=== PATIENT | female | born 1955 | race Caucasian/White ===

== ENCOUNTER 2017-01-22 18:15 | Outpatient (CLI) | payer BC | END 2017-01-22 18:16 | disposition critical access hospital (66) | LOC: EMS 18:15 | PROVIDERS: ATTEND Surgery | DX: R13.10 Dysphagia, unspecified (principal); R68.2 Dry mouth, unspecified | CPT/HCPCS: A0425; A0427 ==

== ENCOUNTER 2017-01-22 18:48 | Emergency (ER) | payer BC ==
[2017-01-22] MEDS ORDERED: SODIUM CHLORIDE 0.9% 1,000 ML IV ONE (20:34)
[2017-01-22 20:59] LABS: BASOPHILS # (AUTO) 0.1 10^3/uL (0.0-0.1); BASOPHILS % (AUTO) 0.9 %; EOSINOPHILS # (AUTO) 0.1 10^3/uL (0.0-0.7); EOSINOPHILS % (AUTO) 0.8 %; HCT - HEMATOCRIT 33.7 % (37.0-47.0); HGB - HEMOGLOBIN 11.5 g/dL (12.0-16.0); LYMPHOCYTES # (AUTO) 1.1 10^3/uL (1.5-3.5); LYMPHOCYTES % (AUTO) 15.5 %; MEAN CORPUSCULAR HEMOGLOBIN 31.5 pg (27.0-31.0); MEAN CORPUSCULAR HGB CONC 34.1 g/dL (32.0-36.0); MEAN CORPUSCULAR VOLUME 92.4 fL (81.0-99.0); MEAN PLATELET VOLUME 6.9 fL (7.9-10.8); MONOCYTES # (AUTO) 0.7 10^3/uL (0.0-1.0); NEUTROPHILS # (AUTO) 5.2 10^3/uL (1.5-6.6); NEUTROPHILS % (AUTO) 72.8 %; RED BLOOD COUNT 3.64 10^6/uL (4.20-5.40); RED CELL DISTRIBUTION WIDTH 12.5 % (12.0-15.0); UNCORRECTED WHITE BLOOD COUNT 7.1 x10^3/uL; WHITE BLOOD COUNT 7.1 x10^3/uL (4.8-10.8)
[2017-01-22 21:13] LABS: ALBUMIN/GLOBULIN RATIO 1.6 (1.0-2.2); BILIRUBIN,TOTAL 0.9 mg/dL (0.2-1.0); CALCIUM 9.1 mg/dL (8.5-10.3); CREATININE 1.1 mg/dL (0.4-1.0); POTASSIUM 4.1 mmol/L (3.5-5.0); TOTAL PROTEIN 6.7 g/dL (6.7-8.2)
--- NOTE | 2017-01-22 22:38 | ED Physician Documentation ---
History of Present Illness - Stated complaint Stated Complaint: POSS ALLERGIC REACTION - Chief complaint Chief Complaint: General - History obtained from History obtained from: Patient - Additonal information Additional information: Patient is a 61-year-old female with a history of what sounds like rheumatoid arthritis according to her . She is on Enbrel and also takes nabumetone and nonsteroidal anti-inflammatories for recurrent pain. She also has a history of hypertension and diabetes. She was in her normal state of health earlier today when she took oral cannabinoids and attempt to remedy her pain. In attempt to remedy her pain. Her pain was generalized and is nothing new according to her and she was fine all morning and the previous last several days. They went out to dinner after taking the medication at 4 PM and about 6 PM she was woozy and appeared slightly confused. At that point the thought she was having allergic reaction gave her 3x25 mg doses of Benadryl. She was subsequently brought in for evaluation for confusion and lethargy. The patient denies any chest pain, shortness of breath nausea, vomiting, fever, constipation diarrhea lower urinary symptoms. Review of systems: For pertinent positive and negatives in the review of systems please see the history of present illness, otherwise all other systems have been reviewed and are negative. Dragon disclaimer: Parts of this medical record were created using voice recognition technology. Because of the inherent limitations of this system, occasional same sounding word substitutions do occur and persist despite proofreading. Please read the document for context. Review of Systems Constitutional: denies: Fever, Chills, Myalgias Cardiac: denies: Chest pain / pressure, Palpitations Respiratory: denies: Dyspnea, Cough GI: denies: Abdominal Pain, Abdominal Swelling Neurologic: reports: Generalized weakness, Confused. denies: Syncope, Seizure, Headache, Head injury Psychiatric: denies: Depressed, Suicidal, Hallucinations, Delusions, Anxiety PD PAST MEDICAL HISTORY - Past Medical History Cardiovascular: Hypertension, High cholesterol Respiratory: Asthma Endocrine/Autoimmune: Type 2 diabetes, HyPOthyroidism Musculoskeletal: Rheumatoid arthritis, Chronic back pain - Past Surgical History Past Surgical History: Yes Ortho: Knee replacement, Shoulder arthroplasty, Carpal Tunnel surgery - Present Medications Home Medications: Ambulatory Orders Medication Instructions Recorded Confirmed Albuterol Sulfate [Albuterol 8.5 gm IH DAILY PRN 07/08/14 02/16/15 Sulfate Hfa] Etanercept [Enbrel] 50 mg SQ DAILY 07/08/14 02/16/15 Fluticasone [Flonase] 07/08/14 02/16/15 Glimepiride 2 mg PO DAILY 07/08/14 02/16/15 Levothyroxine [Synthroid] 50 mcg PO QDAC 07/08/14 02/16/15 Metformin HCl 500 mg PO TID 07/08/14 02/16/15 Methocarbamol [Robaxin] 500 mg PO DAILY PRN 07/08/14 02/16/15 Nabumetone 500 mg PO BID 07/08/14 02/16/15 Rizatriptan Benzoate [Maxalt Senior Underwriting Assistant] 5 mg PO DAILY PRN 07/08/14 02/16/15 Valsartan/Hydrochlorothiazide 1 each PO DAILY 07/08/14 02/16/15 [Valsartan-Hctz 320-12.5 mg Tab] Verapamil ER [Calan SA] 180 mg PO DAILY 07/08/14 02/16/15 Azithromycin [Zithromax] 250 mg PO DAILY 02/16/15 02/16/15 predniSONE [Deltasone] 10 mg PO DAILY 02/16/15 02/16/15 - Allergies Allergies/Adverse Reactions: Allergies Allergy/AdvReac Type Severity Reaction Status Date / Time codeine Allergy Anaphylaxis Verified 07/08/14 19:15 meperidine HCl * Allergy Anaphylaxis Verified 07/08/14 19:15 [From Demerol] Penicillins AdvReac Itching Verified 07/08/14 19:15 simvastatin AdvReac Dizziness Verified 07/08/14 19:15 opiates Allergy Unknown Uncoded 01/22/17 18:56 - Social History Does the pt smoke?: No Smoking Status: Never smoker Does the pt drink ETOH?: No Does the pt have substance abuse?: No - Immunizations Immunizations are current?: Yes - POLST Patient has POLST: No PD ED PE NORMAL - Vitals Vital signs reviewed: Yes - General General: Alert and oriented X 3, No acute distress, Well developed/nourished, Other (Large habitus female who is very sedated but arousable. Pupils are 3-4 mm and equal bilaterally no disconjugate gaze) - HEENT HEENT: Atraumatic, PERRL, Pharynx benign - Neck Neck: Supple, no meningeal sign - Cardiac Cardiac: RRR, No gallop - Respiratory Respiratory: No respiratory distress, Clear bilaterally - Abdomen Abdomen: Normal bowel sounds, Non tender - Rectal Rectal: Deferred - Back Back: No CVA TTP, No spinal TTP - Derm Derm: Normal color, Warm and dry, No rash, Other - Extremities Extremities: No deformity - Neuro Neuro: crane mechanic 2-12 intact, No motor deficit, No sensory deficit Results - Vitals Vitals: Vital Signs - 24 hr 01/22/17 01/22/17 01/22/17 18:50 19:17 20:20 Temperature 36.6 C Heart Rate 96 93 60 Respiratory 16 17 17 Rate Blood Pressure 165/88 H 141/84 H 73/45 L O2 Saturation 96 95 100 01/22/17 01/22/17 01/22/17 21:20 21:45 22:19 Temperature Heart Rate 70 71 80 Respiratory 15 15 17 Rate Blood Pressure 94/60 103/61 110/60 O2 Saturation 96 97 96 01/22/17 01/23/17 23:23 00:56 Temperature Heart Rate 70 69 Respiratory 14 14 Rate Blood Pressure 114/63 136/79 H O2 Saturation 95 96 Oxygen O2 Source Room air - Labs Labs: Laboratory Tests 01/22/17 01/22/17 01/22/17 20:48 20:48 20:48 WBC 7.1 RBC 3.64 L Hgb 11.5 L Hct 33.7 L MCV 92.4 MCH 31.5 H MCHC 34.1 RDW 12.5 Plt Count 206 MPV 6.9 L Neut # 5.2 Lymph # 1.1 L [place] # 0.7 Eos # 0.1 Baso # 0.1 Absolute Nucleated RBC 0.00 Nucleated RBCs 0.0 Sodium 133 L Potassium 4.1 Chloride 97 L Carbon Dioxide 25 Anion Gap 11.0 BUN 19 Creatinine 1.1 H Estimated GFR (MDRD) 50 L Glucose 116 H Calcium 9.1 Total Bilirubin 0.9 AST 35 ALT 41 Alkaline Phosphatase 35 L Troponin I < 0.04 Total Protein 6.7 Albumin 4.1 Globulin 2.6 Albumin/Globulin Ratio 1.6 Lipase 19 L PD MEDICAL DECISION MAKING - ED course Complexity details: reviewed old records, re-evaluated patient, other ED course: This patient a pleasant 60-year-old female with history of rheumatologic condition on Enbrel who he is cannabinoids about 4:00 became very sedated and was given Benadryl, 3 in total by her thinking this was allergic reaction. She then was very sedated and lethargic at dinner and for evaluation. Other than being sedated here clinically the patient is always looked well. There is one episode her blood sugar pressures dropped into the 70s but came back nicely with IV fluids. She does not have any signs or symptoms of infection. Routine labs are done and are unremarkable. EKG shows normal sinus rhythm at 75 bpm there is a small Q-wave inferiorly overall lower voltage and a prolonged OK interval consistent with first-degree AV block. After several hours of observation and fluids the patient looks and feels better there is she has good color she is now ambulatory and will be discharged to home. Disposition: To home Clinical impression: 1. Medication side effect from cannabinoids and oral Benadryl causing sedation and mild asymptomatic hypertension Departure - Departure Disposition: 01 Home, Self Care Clinical Impression: Medication adverse effect Condition: Good Instructions: ED Drug React Adverse Other Follow-Up: your,physician [Other]
[2017-01-23 01:28] VITALS: BP 132/82
== END 2017-01-23 02:25 | disposition home or self-care (01) ==
LOC: EDBD → EDUNIT# → ED 18:48
DX: T40.7X5A Adverse effect of cannabis (derivatives), initial encounter (principal); T45.0X5A Adverse effect of antiallergic and antiemetic drugs, initial encounter; R53.83 Other fatigue; I44.0 Atrioventricular block, first degree; E11.9 Type 2 diabetes mellitus without complications; Z79.84 Long term (current) use of oral hypoglycemic drugs; I10 Essential (primary) hypertension; E78.00 Pure hypercholesterolemia, unspecified; E03.9 Hypothyroidism, unspecified; M06.9 Rheumatoid arthritis, unspecified; Z96.659 Presence of unspecified artificial knee joint; Z79.52 Long term (current) use of systemic steroids
CPT/HCPCS: 36415; 80053; 83690; 84484; 85025; 93005; 96360; 99284

== ENCOUNTER 2019-12-09 22:10 | Outpatient (CLI) | payer SELFPAY | END 2019-12-09 22:11 | disposition EMS.NT | LOC: EMS 22:10 | PROVIDERS: ATTEND Surgery | DX: R73.09 Other abnormal glucose (principal) ==

== ENCOUNTER 2023-08-02 13:48 | Outpatient (CLI) | payer MEDICARE, OTHER ==
[2023-08-02 14:01] LABS: BASOPHILS # (AUTO) 0.1 10^3/uL (0.0-0.1); BASOPHILS % (AUTO) 1.1 %; EOSINOPHILS # (AUTO) 0.8 10^3/uL (0.0-0.7); EOSINOPHILS % (AUTO) 11.2 %; HCT - HEMATOCRIT 35.3 % (37.0-47.0); HGB - HEMOGLOBIN 11.4 g/dL (12.0-16.0); LYMPHOCYTES # (AUTO) 2.3 10^3/uL (1.5-3.5); LYMPHOCYTES % (AUTO) 31.2 %; MEAN CORPUSCULAR HEMOGLOBIN 30.9 pg (27.0-31.0); MEAN CORPUSCULAR HGB CONC 32.3 g/dL (32.0-36.0); MEAN CORPUSCULAR VOLUME 95.7 fL (81.0-99.0); MEAN PLATELET VOLUME 8.6 fL (7.9-10.8); MONOCYTES # (AUTO) 0.5 10^3/uL (0.0-1.0); MONOCYTES % (AUTO) 7.5 %; NEUTROPHILS # (AUTO) 3.4 10^3/uL (1.5-6.6); NEUTROPHILS % (AUTO) 46.8 %; PLT - PLATELET COUNT 330 10^3/uL (130-450); RED BLOOD COUNT 3.69 10^6/uL (4.20-5.40); RED CELL DISTRIBUTION WIDTH 13.5 % (12.0-15.0); WHITE BLOOD COUNT 7.2 x10^3/uL (4.8-10.8)
[2023-08-02 14:19] LABS: BILIRUBIN,URINE NEGATIVE (NEGATIVE); GLUCOSE, URINE (UA) >=1000 mg/dL (NEGATIVE); KETONES,URINE (UA) NEGATIVE (NEGATIVE); LEUKOCYTE ESTERASE, URINE SMALL (NEGATIVE); NITRITE,URINE NEGATIVE (NEGATIVE); OCCULT BLOOD,URINE NEGATIVE (NEGATIVE); PROTEIN,URINE NEGATIVE (NEGATIVE); UROBILINOGEN,URINE 0.2 (NORMAL) E.U./dL (NORMAL)
[2023-08-02 14:27] LABS: BACTERIA,URINE Many /HPF (None Seen); CLARITY,URINE CLOUDY (CLEAR); RBC,URINE 0-5 /HPF (0-5); SQUAMOUS EPITHELIAL CELL,UR RARE Squamous (<= Few); WBC,URINE >25 /HPF (0-5)
[2023-08-02 14:31] LABS: ALBUMIN 4.5 g/dL (3.2-5.5); CALCIUM 10.2 mg/dL (8.5-10.3); CREATININE 1.6 mg/dL (0.6-1.3); PHOSPHORUS 4.1 mg/dL (2.5-5.0); POTASSIUM 4.5 mmol/L (3.5-4.5); URIC ACID 5.3 mg/dL (2.3-6.6)
[2023-08-02 14:34] LABS: CREATININE,URINE 32.1 mg/dL; PROTEIN/CREATININE RATIO,URINE 0.6 (<=0.2)
[2023-08-03 05:13] LABS: COMPLEMENT C3 146 mg/dL (82-167); COMPLEMENT C4 28 mg/dL (12-38)
[2023-08-03 19:07] LABS: KAPPA FREE LT CHAINS SERUM 69.7 mg/L (3.3-19.4)
[2023-08-06 14:08] LABS: A/G RATIO 1.3 (0.7-1.7); ALPHA-1-GLOBULIN 0.2 g/dL (0.0-0.4); ALPHA-2-GLOBULIN 0.9 g/dL (0.4-1.0); BETA GLOBULIN 1.1 g/dL (0.7-1.3); GAMMA GLOBULIN 1.1 g/dL (0.4-1.8); GLOBULIN TOTAL 3.2 g/dL (2.2-3.9); IMMUNOGLOBULIN A (IGA) 215 mg/dL (87-352); IMMUNOGLOBULIN G (IGG) 974 mg/dL (586-1602); IMMUNOGLOBULIN M (IGM) 44 mg/dL (26-217); M-SPIKE Not Observed g/dL (Not Observed); PROTEIN TOTAL 7.2 g/dL (6.0-8.5)
== END 2023-08-02 13:49 | disposition home or self-care (01) ==
LOC: LAB 13:48
PROVIDERS: ATTEND Internal Medicine Nephrology
DX: N18.32 Chronic kidney disease, stage 3b (principal); R80.9 Proteinuria, unspecified
CPT/HCPCS: 36415; 80069; 81001; 82570; 82784; 83521; 83970; 84155; 84156; 84165; 84550; 85025; 86160; 86334; 87086; 87181

== ENCOUNTER 2023-09-13 16:47 | Outpatient (CLI) | payer MEDICARE, OTHER | END 2023-09-13 23:59 | disposition EMS.NT | LOC: EMS 16:47 | DX: Z03.89 Encounter for observation for other suspected diseases and conditions ruled out (principal) ==

== ENCOUNTER 2024-01-10 03:58 | Outpatient (CLI) | payer MEDICARE | END 2024-01-10 23:59 | disposition critical access hospital (66) | LOC: EMS 03:58 | DX: R07.9 Chest pain, unspecified (principal); R61 Generalized hyperhidrosis; R42 Dizziness and giddiness; R19.7 Diarrhea, unspecified; R19.5 Other fecal abnormalities; R23.2 Flushing | CPT/HCPCS: A0425; A0429 ==

== ENCOUNTER 2024-01-10 04:26 | Emergency (ER) | payer MEDICARE, OTHER ==
[2024-01-10 05:05] LABS: BASOPHILS # (AUTO) 0.1 10^3/uL (0.0-0.1); BASOPHILS % (AUTO) 0.5 %; EOSINOPHILS # (AUTO) 0.3 10^3/uL (0.0-0.7); EOSINOPHILS % (AUTO) 1.9 %; HCT - HEMATOCRIT 37.4 % (37.0-47.0); HGB - HEMOGLOBIN 11.9 g/dL (12.0-16.0); LYMPHOCYTES # (AUTO) 1.8 10^3/uL (1.5-3.5); LYMPHOCYTES % (AUTO) 11.6 %; MEAN CORPUSCULAR HEMOGLOBIN 30.6 pg (27.0-31.0); MEAN CORPUSCULAR HGB CONC 31.8 g/dL (32.0-36.0); MEAN CORPUSCULAR VOLUME 96.1 fL (81.0-99.0); MEAN PLATELET VOLUME 9.1 fL (7.9-10.8); MONOCYTES # (AUTO) 0.9 10^3/uL (0.0-1.0); MONOCYTES % (AUTO) 6.1 %; NEUTROPHILS # (AUTO) 11.8 10^3/uL (1.5-6.6); NEUTROPHILS % (AUTO) 77.8 %; PLT - PLATELET COUNT 311 10^3/uL (130-450); RED BLOOD COUNT 3.89 10^6/uL (4.20-5.40); RED CELL DISTRIBUTION WIDTH 13.2 % (12.0-15.0); WHITE BLOOD COUNT 15.1 x10^3/uL (4.8-10.8)
[2024-01-10 05:23] LABS: TROPONIN I HIGH SENSITIVITY 4.4 ng/L (2.3-14.8)
[2024-01-10 05:29] LABS: ALBUMIN 4.4 g/dL (3.2-5.5); ALBUMIN/GLOBULIN RATIO 1.8 (1.0-2.2); BILIRUBIN,TOTAL 0.4 mg/dL (0.2-1.0); CALCIUM 9.6 mg/dL (8.5-10.3); CREATININE 1.5 mg/dL (0.6-1.3); POTASSIUM 3.7 mmol/L (3.5-4.5); TOTAL PROTEIN 6.9 g/dL (6.4-8.9)
--- NOTE | 2024-01-10 06:27 | ED Physician Documentation ---
PD HPI CHEST PAIN - Stated complaint Stated Complaint: DIZZY/DIARRHEA - Chief complaint Chief Complaint: Cardiac - History obtained from History obtained from: Patient, EMS - Additional information Additional information: 68-year-old female with history of [id number] diabetes, stage III chronic kidney disease, fatty liver disease presents by EMS from home for chest pain and episode of dark stools. Patient states that she got up to use the restroom in the middle the night and felt a heavy pain throughout her entire torso. This resolved spontaneously, however afterwards patient had a brief episode of stomach discomfort and had a dark bowel movement. Patient states that she did not see the bowel movement, her is the one who noticed it and called 911. Patient denies complaints at this time. She states she feels otherwise well. Denies chest pain, abdominal pain, use of blood thinners. Currently playing [employer] on her cell phone Review of Systems Constitutional: denies: Fever, Chills Cardiac: denies: Chest pain / pressure, Palpitations, Calf pain Respiratory: denies: Dyspnea, Cough, Wheezing Musculoskeletal: denies: Neck pain, Back pain, Extremity pain PD PAST MEDICAL HISTORY - Past Medical History Cardiovascular: Hypertension, High cholesterol Respiratory: Asthma Endocrine/Autoimmune: Type 2 diabetes, HyPOthyroidism Musculoskeletal: Rheumatoid arthritis, Chronic back pain - Past Surgical History Past Surgical History: Yes Ortho: Knee replacement, Shoulder arthroplasty, Carpal Tunnel surgery - Present Medications Home Medications: Ambulatory Orders Medication Instructions Recorded Confirmed Albuterol Sulfate [Albuterol 8.5 gm IH DAILY PRN 07/08/14 02/16/15 Sulfate Hfa] Etanercept [Enbrel] 50 mg SQ DAILY 07/08/14 02/16/15 Fluticasone [Flonase] 07/08/14 02/16/15 Glimepiride 2 mg PO DAILY 07/08/14 02/16/15 Levothyroxine [Synthroid] 50 mcg PO QDAC 07/08/14 02/16/15 Metformin HCl 500 mg PO TID 07/08/14 02/16/15 Nabumetone 500 mg PO BID 07/08/14 02/16/15 Rizatriptan Benzoate [Maxalt Family Therapist] 5 mg PO DAILY PRN 07/08/14 02/16/15 Valsartan/Hydrochlorothiazide 1 each PO DAILY 07/08/14 02/16/15 [Valsartan-Hctz 320-12.5 mg Tab] Verapamil ER [Calan SA] 180 mg PO DAILY 07/08/14 02/16/15 methocarbamoL [Robaxin] 500 mg PO DAILY PRN 07/08/14 02/16/15 Azithromycin [Zithromax] 250 mg PO DAILY 02/16/15 02/16/15 predniSONE [Deltasone] 10 mg PO DAILY 02/16/15 02/16/15 - Allergies Allergies/Adverse Reactions: Allergies Allergy/AdvReac Type Severity Reaction Status Date / Time codeine Allergy Anaphylaxis Verified 07/08/14 19:15 meperidine HCl * Allergy Anaphylaxis Verified 07/08/14 19:15 [From Demerol] Penicillins AdvReac Itching Verified 07/08/14 19:15 simvastatin AdvReac Dizziness Verified 07/08/14 19:15 opiates Allergy Unknown Uncoded 01/22/17 18:56 - Social History Does the pt smoke?: No Smoking Status: Never smoker Does the pt drink ETOH?: No Does the pt have substance abuse?: No - Immunizations Immunizations are current?: Yes - POLST Patient has POLST: No PD ED PE NORMAL - Vitals Vital signs reviewed: Yes - General General: Alert and oriented X 3, No acute distress, Well developed/nourished - Cardiac Cardiac: RRR, Strong equal pulses - Respiratory Respiratory: No respiratory distress, Clear bilaterally - Abdomen Abdomen: Soft, Non tender, Non distended - Derm Derm: Normal color, Warm and dry, No rash - Extremities Extremities: No deformity, No tenderness to palpate, Normal ROM s pain, No edema - Neuro Neuro: Alert and oriented X 3, webfocus developer 2-12 intact, No motor deficit, Normal speech Results - Vitals Vitals: Oxygen O2 Source Room air - Labs Labs: Laboratory Tests 01/10/24 01/10/24 01/10/24 04:47 04:47 05:02 WBC 15.1 H RBC 3.89 L Hgb 11.9 L Hct 37.4 MCV 96.1 MCH 30.6 MCHC 31.8 L RDW 13.2 Plt Count 311 MPV 9.1 Neut # (Auto) 11.8 H Lymph # (Auto) 1.8 [place] # (Auto) 0.9 Eos # (Auto) 0.3 Baso # (Auto) 0.1 Absolute Nucleated RBC 0.00 Nucleated RBC % 0.0 PT 11.0 INR 1.0 Sodium 136 Potassium 3.7 Chloride 103 Carbon Dioxide 23 Anion Gap 10.0 BUN 46 H Creatinine 1.5 H Estimated GFR (MDRD) 34 L Glucose 160 H Calcium 9.6 Total Bilirubin 0.4 AST 13 ALT 15 Alkaline Phosphatase 38 L Troponin I High Sens 4.4 Total Protein 6.9 Albumin 4.4 Globulin 2.5 Albumin/Globulin Ratio 1.8 Lipase 46 01/10/24 06:37 WBC RBC Hgb Hct MCV MCH MCHC RDW Plt Count MPV Neut # (Auto) Lymph # (Auto) [place] # (Auto) Eos # (Auto) Baso # (Auto) Absolute Nucleated RBC Nucleated RBC % PT INR Sodium Potassium Chloride Carbon Dioxide Anion Gap BUN Creatinine Estimated GFR (MDRD) Glucose Calcium Total Bilirubin AST ALT Alkaline Phosphatase Troponin I High Sens 4.5 Total Protein Albumin Globulin Albumin/Globulin Ratio Lipase PD Medical Decision Making - ED course Complexity details: reviewed old records, reviewed results, re-evaluated patient, considered differential, d/w patient ED course: Well-appearing patient with brief episode of chest pain prior to arrival as well as an episode of dark stools. Patient denies complaints at this time. Not on b lood thinners. Physical exam is unremarkable, no significant findings. Initial troponin undetectable. Patient resting comfortably in bed, no further episodes identified. 2-hour troponin drawn, pending, to be followed up by daytime physician. Departure - Departure Disposition: 01 Home, Self Care Clinical Impression: Chest pain Condition: Stable Instructions: ED Chest Pain Atypical Unkn Cause Comments: Follow up with your primary care doctor. Your laboratory work today was normal and your chest x-ray did not show anything concerning. Talk to your doctor about being referred to a radio electrician. Forms: PCP List Discharge Date/Time: 01/10/24 07:30
[2024-01-10 06:55] VITALS: BP 136/66; O2SAT 98
--- NOTE | 2024-01-10 10:04 | XRAY Report ---
PROCEDURE: Chest 1V INDICATIONS: chest pain TECHNIQUE: One view of the chest was acquired. COMPARISON: None. FINDINGS: Surgical changes and devices: None. Lungs and pleura: No pleural effusions or pneumothorax. Lungs are clear. Mediastinum: Mediastinal contours appear normal. Heart size is enlarged. Bones and chest wall: No suspicious bony lesions. Overlying soft tissues appear unremarkable. IMPRESSION: No acute cardiopulmonary process. The above findings are concordant with preliminary report. Reviewed by: Larissa Martinez MD on 01/10/2024 10:02 AM PDT Approved by: Larissa Martinez MD on 01/10/2024 10:02 AM PDT Station ID: [id number]
== END 2024-01-10 07:30 | disposition home or self-care (01) ==
LOC: EDUNIT# → ED 04:26
DX: R07.9 Chest pain, unspecified (principal); I12.9 Hypertensive chronic kidney disease with stage 1 through stage 4 chronic kidney disease, or unspecified chronic kidney disease; E11.22 Type 2 diabetes mellitus with diabetic chronic kidney disease; N18.30 Chronic kidney disease, stage 3 unspecified; K76.0 Fatty (change of) liver, not elsewhere classified; J45.909 Unspecified asthma, uncomplicated; M06.9 Rheumatoid arthritis, unspecified
CPT/HCPCS: 36415; 80053; 83690; 84484; 85025; 85610; 93005; 99283; 99284

== ENCOUNTER 2024-01-30 10:42 | Outpatient (CLI) | payer MEDICARE ==
[2024-01-30 11:14] LABS: BASOPHILS # (AUTO) 0.1 10^3/uL (0.0-0.1); EOSINOPHILS # (AUTO) 0.3 10^3/uL (0.0-0.7); EOSINOPHILS % (AUTO) 4.1 %; HCT - HEMATOCRIT 35.1 % (37.0-47.0); HGB - HEMOGLOBIN 11.5 g/dL (12.0-16.0); LYMPHOCYTES # (AUTO) 1.9 10^3/uL (1.5-3.5); MEAN CORPUSCULAR HEMOGLOBIN 30.8 pg (27.0-31.0); MEAN CORPUSCULAR HGB CONC 32.8 g/dL (32.0-36.0); MEAN CORPUSCULAR VOLUME 94.1 fL (81.0-99.0); MONOCYTES # (AUTO) 0.5 10^3/uL (0.0-1.0); MONOCYTES % (AUTO) 6.4 %; NEUTROPHILS # (AUTO) 3.9 10^3/uL (1.5-6.6); NEUTROPHILS % (AUTO) 55.6 %; PLT - PLATELET COUNT 350 10^3/uL (130-450); RED BLOOD COUNT 3.73 10^6/uL (4.20-5.40)
[2024-01-30 11:17] LABS: BILIRUBIN,URINE NEGATIVE (NEGATIVE); GLUCOSE, URINE (UA) >=1000 mg/dL (NEGATIVE); KETONES,URINE (UA) NEGATIVE (NEGATIVE); LEUKOCYTE ESTERASE, URINE NEGATIVE (NEGATIVE); NITRITE,URINE POSITIVE (NEGATIVE); OCCULT BLOOD,URINE NEGATIVE (NEGATIVE); PROTEIN,URINE NEGATIVE (NEGATIVE); UROBILINOGEN,URINE 0.2 (NORMAL) E.U./dL (NORMAL)
[2024-01-30 11:22] LABS: ALBUMIN 4.3 g/dL (3.2-5.5); CALCIUM 9.4 mg/dL (8.5-10.3); CREATININE 1.5 mg/dL (0.6-1.3); PHOSPHORUS 4.3 mg/dL (2.5-5.0); POTASSIUM 3.9 mmol/L (3.5-4.5); URIC ACID 5.3 mg/dL (2.3-6.6)
[2024-01-30 11:25] LABS: CREATININE,URINE 38.8 mg/dL; PROTEIN/CREATININE RATIO,URINE 0.4 (<=0.2)
[2024-01-30 11:36] LABS: CLARITY,URINE HAZY (CLEAR)
[2024-01-30 11:40] LABS: BACTERIA,URINE Moderate /HPF (None Seen); RBC,URINE 0-5 /HPF (0-5); SQUAMOUS EPITHELIAL CELL,UR NONE SEEN (<= Few)
[2024-01-31 07:10] LABS: COMPLEMENT C3 140 mg/dL (82-167); COMPLEMENT C4 25 mg/dL (12-38)
[2024-01-31 20:08] LABS: KAPPA FREE LT CHAINS SERUM 55.7 mg/L (3.3-19.4); KAPPA/LAMBDA RATIO SERUM 1.83 (0.26-1.65); LAMBDA FREE LT CHAINS SERUM 30.5 mg/L (5.7-26.3)
[2024-02-01 15:10] LABS: A/G RATIO 1.3 (0.7-1.7); ALBUMIN 3.8 g/dL (2.9-4.4); ALPHA-1-GLOBULIN 0.2 g/dL (0.0-0.4); ALPHA-2-GLOBULIN 0.9 g/dL (0.4-1.0); GLOBULIN TOTAL 3.1 g/dL (2.2-3.9); IMMUNOGLOBULIN A (IGA) 231 mg/dL (87-352); IMMUNOGLOBULIN G (IGG) 980 mg/dL (586-1602); IMMUNOGLOBULIN M (IGM) 39 mg/dL (26-217); M-SPIKE Not Observed g/dL (Not Observed); PROTEIN TOTAL 6.9 g/dL (6.0-8.5)
== END 2024-01-30 10:43 | disposition home or self-care (01) ==
LOC: LAB 10:42
PROVIDERS: ATTEND Internal Medicine Nephrology
DX: E11.21 Type 2 diabetes mellitus with diabetic nephropathy (principal); E11.22 Type 2 diabetes mellitus with diabetic chronic kidney disease; N18.32 Chronic kidney disease, stage 3b; R80.9 Proteinuria, unspecified
CPT/HCPCS: 36415; 80069; 81001; 81003; 82570; 82784; 83521; 83970; 84155; 84156; 84165; 84550; 85025; 86160; 86334; 87086; 87181